=== PATIENT | male | born 1955 | race Caucasian/White ===

== ENCOUNTER 2020-11-07 01:28 | Emergency (ER) | payer MEDICARE, SELFPAY ==
[2020-11-07 01:36] VITALS: BP 166/124; PULSE 83; RESP 18; TEMP 36.5; O2SAT 100; BMI 23.5
[2020-11-07 01:44] VITALS: BP 183/107; PULSE 83; RESP 18; TEMP 36.5; O2SAT 100
--- NOTE | 2020-11-07 01:48 | W.ED.NAVMDI ---
Documented by User: EDWARDO Smiley 11/07/20 03:30 HPI - Nausea/Vomiting/Diarrhea General: Chief complaint: Nausea/Vomiting/Diarrhea Stated complaint: Vomiting Time Seen by Provider: 11/07/20 01:42 History of Present Illness: HPI Narrative: Patient is a 65-year-old male comes to the ED with nausea and vomiting. Symptoms started 3 days ago. He is had this once before and was diagnosed with cyclic vomiting syndrome. He admits to chronic marijuana use. He has vomited many times today and over the past couple days and has not been able to keep any food or fluids down. He went in to the ED at [facility] on Thursday and was diagnosed with cyclic vomiting and sent home with nausea meds. The at home nausea meds did not help. He denies any fever, chills, chest pain, shortness of breath, abdominal pain, bladder or bowel symptoms. Associated nausea: Yes Associated symtoms: Reports nausea; Denies change in vision, chest pain, dysuria, fatigue, headache(s) or palpitations Review of Systems Const: Denies: fever(s), chills or fatigue Eyes: Denies: change in vision or eye discomfort ENMT: Denies: throat pain, odynophagia, nasal discharge or nasal congestion Card: Denies: chest pain, palpitations, edema, swelling of feet/ankles, dyspnea on exertion or orthopnea Resp: Denies: dyspnea, productive cough or non-productive cough GI: Reports: nausea and vomiting; Denies: abdominal pain, diarrhea, constipation or hematochezia : Denies: flank pain, difficulty urinating, dysuria or hematuria Musc: Denies: neck pain, back pain or extremity swelling Skin/Breast: Denies: rash or new lesions Neuro: Denies: headache(s), numbness in extremities or weakness in extremities Physical Exam Const: COMMON NORMALS: no acute distress, patient oriented x3 and alert GENERAL APPEARANCE: cooperative and comfortable HENMT: COMMON NORMALS: normocephalic HEAD & SCALP: normocephalic MOUTH: moist mucous membranes abnormal Details: parched THROAT: posterior oropharynx normal and uvula midline Eye: COMMON NORMALS: Equal, round and reactive pupils present PUPIL: Yes Equal, round and reactive pupils present Neck/C-Spine: COMMON NORMALS: supple GENERAL: Yes normal visual inspection Resp: COMMON NORMALS: normal respiratory effort, No retractions, No use of accessory muscles and clear to auscultation bilaterally AUSCULTATION: clear to auscultation bilaterally Cardio: COMMON NORMALS: regular rate, regular rhythm, S1 normal heart sound present, S2 normal heart sound present, No gallops present (Cardio), No clicks present (Cardio), No murmurs present (Cardio) and Peripheral pulses 2+ throughout RATE: regular rate RHYTHM: regular rhythm HEART SOUNDS: S1 normal heart sound present and S2 normal heart sound present PERIPHERAL PULSES: Peripheral pulses 2+ throughout GI: COMMON NORMALS: Normal to inspection, nondistended, normoactive bowel sounds present, Soft to palpation, non-tender and no masses PALPATION: Yes Soft to palpation OTHER: No tenderness upon light or deep palpation of the abdomen. : COMMON NORMALS: Yes no CVA tenderness BLADDER/KIDNEY EXAM: Yes no CVA tenderness Back/Pelvis: COMMON NORMALS: no CVA tenderness Extremity: COMMON NORMALS: normal to inspection and no pedal edema Neuro: COMMON NORMALS: patient oriented x3 and moves all extremities SENSORIUM/ORIENTATION: Yes alert Skin: GENERAL SKIN EXAM: dry skin Course Vital Signs: Vital signs: Vital Signs Temperature 97.7 F 11/07/20 01:44 Pulse Rate 79 11/07/20 06:04 Respiratory Rate 19 H 11/07/20 06:04 Blood Pressure 179/99 11/07/20 06:04 Pulse Oximetry 100 11/07/20 06:04 MDM - Nausea/Vomiting/Diarrhea MDM Narrative: Medical decision making narrative: Patient is a 65-year-old male who comes to the ED with nausea and vomiting. Symptoms started approximately 4 days ago. Patient has been diagnosed with cyclic vomiting before and admits to cannabis use. Denies any other symptoms such as fever, chills, abdominal pain, chest pain, bladder or bowel symptoms. Vitals are stable. Patient appears a little dry but in no acute distress or pain. He has no abdominal tenderness upon light or deep palpation. His potassium was 3.1 but the rest of CBC, CMP, lipase and UA were unremarkable. Patient was given 2 L of IV fluids, Reglan, Zofran and Ativan and his symptoms improved. He was able to tolerate p.o. fluids and he was also given potassium chloride p.o. while here in the ED. He complained of some heartburn so he was given a GI cocktail and some Pepcid. Patient care was then transferred over to Dr. Aguilar and I told him to watch patient for another half hour and if symptoms improve he can discharge home. Patient diagnosed with cyclic vomiting syndrome and hypokalemia. Sending patient home with a written prescription for 0.5 mg Ativan #6 tablets and Zofran. He is told to follow-up with his PCP in 5 to 7 days for reevaluation and to recheck his potassium levels. Return to ED precautions given. Lab Data: Attestation: I reviewed the patient's lab results. Labs: Lab Results 11/07/20 11/07/20 11/07/20 Range/Units 01:37 01:37 02:42 WBC 6.6 (4.0-10.0) 10^3/ uL RBC 4.30 (4.1-5.3) 10^6/u L Hgb 13.7 (11.7-16.6) g/dL Hct 39.1 L (42.0-52.0) % MCV 90.9 (80-94) fl MCH 31.9 (28.0-34.0) pg MCHC 35.0 (30.0-36.0) g/dL RDW 11.9 L (12.1-15.1) % Plt Count 316 (130-400) 10^3/c mm MPV 10.1 (7.4-10.4) fL Neut % (Auto) 78.6 % Lymph % (Auto) 14.7 % Buchanan % (Auto) 5.9 % Eos % (Auto) 0.2 % Baso % (Auto) 0.3 % Neut # (Auto) 5.17 (1.8-7.7) 10^3/u L Lymph # (Auto) 1.0 (0.8-4.8) 10^3/u L Buchanan # (Auto) 0.4 (0.2-0.9) 10^3/u L Eos # (Auto) 0.0 (0.0-0.8) 10^3/u L Baso # (Auto) 0.0 (0.0-0.1) 10^3/u L Nucleated RBC % (a uto) 0 % Nucleated RBCs # 0.0 /100WBC Sodium 136 (136-145) mmol/L Potassium 3.1 L (3.5-5.1) mmol/L Chloride 95 L (98-107) mmol/L Carbon Dioxide 24 (22-29) mmol/L Anion Gap 20.1 H (5-19) BUN 9 (8-23) mg/dL Creatinine 0.7 (0.7-1.2) mg/dL GFR Calculation 113.5 (90-130) mL/min Glucose 115 (65-115) mg/dL Calculated Osmolal ity 282 L (285-295) mOsm/k g Calcium 9.8 (8.5-10.5) mg/dL Total Bilirubin 0.7 (0.15-1.2) mg/dL AST 22 (0-40) U/L ALT 18 (0-41) U/L Alkaline Phosphata se 294 H (40-130) IU/L Total Protein 7.4 (6.6-8.7) g/dL Albumin 4.7 (3.5-5.2) g/dL Globulin 2.7 (1.3-4.6) g/dL Lipase 41 (13-60) U/L Urine Color Yellow (Yellow) Urine Appearance Clear (CLEAR) Urine pH 9 H (5-7) Ur Specific Gravit y 1.010 (1.005-1.030) Urine Protein Neg (Negative) Urine Glucose (UA) Norm (Normal) Urine Ketones 2+ H (Negative) Urine Blood Neg (Negative) Urine Nitrate Negative (Negative) Urine Bilirubin Neg (Negative) Prot Sulfosalicyli c Acd Negative (Negative) Urine Urobilinogen Norm (Negative) mg/dL Ur Leukocyte Teresa ase Negative (Negative) Discharge Plan Discharge Patient Disposition: Home Clinical Impression: Cyclic vomiting syndrome, Hypokalemia, Hypertension Condition: Stable Prescriptions: New ondansetron 4 mg tablet,disintegrating 4 mg PO Q8H Qty: 20 RF: 0 Norvasc 5 mg tablet 5 mg PO DAILY Qty: 30 RF: 0 Discharge Orders: Discharge ED (Routine); Ordered 11/07/20 Ordered By: Agustin Aguilar Discharge Diet: Advance as tolerated Discharge Activity: Increase activity as tolerated Patient Instructions: Acute Nausea and Vomiting (ED), Hypertension (ED) Activity Restrictions/Additional Instructions: Follow-up with medical provider as directed in 5 to 7 days reevaluation. Have your potassium level rechecked at your PCP. take medications as prescribed. Return to the ER or your medical provider if condition worsens. Please read and understand discharge instructions. Thank you for choosing [facility] for your healthcare needs today. Please realize this is an emergency room and that we are providing you with a medical screening exam and this may not be complete and all inclusive of all the testing and or work up that you may need to determine your ailment or severity of your illness. It is very important that you follow up as instructed or that you return to the Emergency Department should you have concerns or if your condition changes or worsens in any way. Sign Out Sign Out Data: Patient Sign Out occurred on 11/07/20 at 04:47. Patient's care was discussed, and care was transferred from to Agustin Aguilar MD. Coding Level of Care Code ED [facility] [employer] [facility] Fwd Exam Comprehensive Documented by User: Agustin Aguilar MD 11/08/20 07:13 HPI - Nausea/Vomiting/Diarrhea General: Chief complaint: Nausea/Vomiting/Diarrhea Stated complaint: Vomiting Time Seen by Provider: 11/07/20 01:42 Course Vital Signs: Vital signs: Vital Signs Temperature 97.7 F 11/07/20 01:44 Pulse Rate 79 11/07/20 06:04 Respiratory Rate 19 H 11/07/20 06:04 Blood Pressure 179/99 11/07/20 06:04 Pulse Oximetry 100 11/07/20 06:04 MDM - Nausea/Vomiting/Diarrhea MDM Narrative: Medical decision making narrative: I discussed the patient case and have reviewed documentation and agree as written. Patient reevaluated with some improvement then worsening of symptoms. Topical capsaicin cream ordered with near complete resolution of pain and other symptoms. Patient is satisfactory for discharge. Agustin Aguilar MD Emergency Medicine Lab Data: Labs: Lab Results 11/07/20 11/07/20 11/07/20 Range/Units 01:37 01:37 02:42 WBC 6.6 (4.0-10.0) 10^3/ uL RBC 4.30 (4.1-5.3) 10^6/u L Hgb 13.7 (11.7-16.6) g/dL Hct 39.1 L (42.0-52.0) % MCV 90.9 (80-94) fl MCH 31.9 (28.0-34.0) pg MCHC 35.0 (30.0-36.0) g/dL RDW 11.9 L (12.1-15.1) % Plt Count 316 (130-400) 10^3/c mm MPV 10.1 (7.4-10.4) fL Neut % (Auto) 78.6 % Lymph % (Auto) 14.7 % Buchanan % (Auto) 5.9 % Eos % (Auto) 0.2 % Baso % (Auto) 0.3 % Neut # (Auto) 5.17 (1.8-7.7) 10^3/u L Lymph # (Auto) 1.0 (0.8-4.8) 10^3/u L Buchanan # (Auto) 0.4 (0.2-0.9) 10^3/u L Eos # (Auto) 0.0 (0.0-0.8) 10^3/u L Baso # (Auto) 0.0 (0.0-0.1) 10^3/u L Nucleated RBC % (a uto) 0 % Nucleated RBCs # 0.0 /100WBC Sodium 136 (136-145) mmol/L Potassium 3.1 L (3.5-5.1) mmol/L Chloride 95 L (98-107) mmol/L Carbon Dioxide 24 (22-29) mmol/L Anion Gap 20.1 H (5-19) BUN 9 (8-23) mg/dL Creatinine 0.7 (0.7-1.2) mg/dL GFR Calculation 113.5 (90-130) mL/min Glucose 115 (65-115) mg/dL Calculated Osmolal ity 282 L (285-295) mOsm/k g Calcium 9.8 (8.5-10.5) mg/dL Total Bilirubin 0.7 (0.15-1.2) mg/dL AST 22 (0-40) U/L ALT 18 (0-41) U/L Alkaline Phosphata se 294 H (40-130) IU/L Total Protein 7.4 (6.6-8.7) g/dL Albumin 4.7 (3.5-5.2) g/dL Globulin 2.7 (1.3-4.6) g/dL Lipase 41 (13-60) U/L Urine Color Yellow (Yellow) Urine Appearance Clear (CLEAR) Urine pH 9 H (5-7) Ur Specific Gravit y 1.010 (1.005-1.030) Urine Protein Neg (Negative) Urine Glucose (UA) Norm (Normal) Urine Ketones 2+ H (Negative) Urine Blood Neg (Negative) Urine Nitrate Negative (Negative) Urine Bilirubin Neg (Negative) Prot Sulfosalicyli c Acd Negative (Negative) Urine Urobilinogen Norm (Negative) mg/dL Ur Leukocyte Teresa ase Negative (Negative) Discharge Plan Discharge Patient Disposition: Home Clinical Impression: Cyclic vomiting syndrome, Hypokalemia, Hypertension Condition: Stable Prescriptions: New ondansetron 4 mg tablet,disintegrating 4 mg PO Q8H Qty: 20 RF: 0 Norvasc 5 mg tablet 5 mg PO DAILY Qty: 30 RF: 0 Discharge Orders: Discharge ED (Routine); Ordered 11/07/20 Ordered By: Agustin Aguilar Discharge Diet: Advance as tolerated Discharge Activity: Increase activity as tolerated Patient Instructions: Acute Nausea and Vomiting (ED), Hypertension (ED) Activity Restrictions/Additional Instructions: Follow-up with medical provider as directed in 5 to 7 days reevaluation. Have your potassium level rechecked at your PCP. take medications as prescribed. Return to the ER or your medical provider if condition worsens. Please read and understand discharge instructions. Thank you for choosing [facility] for your healthcare needs today. Please realize this is an emergency room and that we are providing you with a medical screening exam and this may not be complete and all inclusive of all the testing and or work up that you may need to determine your ailment or severity of your illness. It is very important that you follow up as instructed or that you return to the Emergency Department should you have concerns or if your condition changes or worsens in any way. Sign Out Sign Out Data: Patient Sign Out occurred on 11/07/20 at 04:47. Patient's care was discussed, and care was transferred from to Agustin Aguilar MD. Coding Level of Care Code ED [facility] [facility] [employer] [facility] Fwd Exam Comprehensive
[2020-11-07 01:56] LABS: Basophils % 0.3 %; Eosinophils % 0.2 %; Hematocrit 39.1 % (42.0-52.0); Hemoglobin 13.7 g/dL (11.7-16.6); Lymphocytes % 14.7 %; Mean Corpuscular Hemoglobin 31.9 pg (28.0-34.0); Mean Corpuscular Volume 90.9 fl (80-94); Mean Platelet Volume 10.1 fL (7.4-10.4); Monocytes # 0.4 10^3/uL (0.2-0.9); Monocytes % 5.9 %; Neutrophils # 5.17 10^3/uL (1.8-7.7); Neutrophils % 78.6 %; Nucleated Red Blood Cells % 0 %; Platelet Count 316 10^3/cmm (130-400); Red Cell Distribution Width 11.9 % (12.1-15.1); White Blood Count 6.6 10^3/uL (4.0-10.0)
[2020-11-07] MEDS: metoclopramide 5 mg/mL SDV 2 mL 10 MG IVP (01:56)
[2020-11-07] MEDS: LORazepam 2 mg/mL INJ 1 mL 1 MG IVP (01:56)
[2020-11-07] MEDS: sodium chloride 0.9% 1,000 ML 999 ML IV ×2 (01:56→02:46)
[2020-11-07 02:10] LABS: Alanine Aminotransferase 18 U/L (0-41); Albumin Level 4.7 g/dL (3.5-5.2); Alkaline Phosphatase 294 IU/L (40-130); Anion Gap 20.1 (5-19); Aspartate Amino Transferase 22 U/L (0-40); Blood Urea Nitrogen 9 mg/dL (8-23); Calcium 9.8 mg/dL (8.5-10.5); Carbon Dioxide 24 mmol/L (22-29); Chloride 95 mmol/L (98-107); Globulin 2.7 g/dL (1.3-4.6); Glomerular Filtration Rate 113.5 mL/min (90-130); Glucose 115 mg/dL (65-115); Lipase 41 U/L (13-60); Osmolality Calculated 282 mOsm/kg (285-295); Potassium 3.1 mmol/L (3.5-5.1); Sodium 136 mmol/L (136-145); Total Bilirubin 0.7 mg/dL (0.15-1.2); Total Protein 7.4 g/dL (6.6-8.7)
[2020-11-07] MEDS: potassium chloride ER 20 mEq Tablet PO (02:46)
[2020-11-07 02:49] VITALS: BP 191/113; PULSE 76; RESP 16; O2SAT 99
[2020-11-07 02:55] LABS: Add Urine Microscopic? NO; Charge for UA Resulting for Rev
[2020-11-07 03:03] LABS: Bilirubin Urine Neg (Negative); Blood Urine Neg (Negative); Glucose Urine UA Norm (Normal); Ketones Urine 2+ (Negative); Nitrate Urine Negative (Negative); Protein Urine Neg (Negative); Sulfosalicylic Acid Urine Negative (Negative); Urine Appearance Clear (CLEAR); Urine Color Yellow (Yellow); Urobilinogen Urine Norm (Negative); pH Urine 9 (5-7)
[2020-11-07 03:04] LABS: Leukocyte Esterase Urine Negative (Negative)
[2020-11-07] MEDS: ondansetron 2 mg/ML SDV 2 mL 4 MG IVP (04:15)
[2020-11-07] MEDS: famotidine 20 mg/2 mL INJ 40 MG IVP (04:19)
[2020-11-07] MEDS: lidocaine 2% viscous 15 ML, aluminum-mag hydrox-simethicon 30 ML, sucralfate oral liq 1 GM PO (04:21)
[2020-11-07] MEDS: capsaicin 0.025% cream 60 gm 1 APPLIC TOPICAL (05:22)
[2020-11-07] MEDS: amlodipine 5 mg Tablet PO (05:53)
[2020-11-07 06:04] VITALS: BP 179/99; PULSE 79; RESP 19; O2SAT 100
== END 2020-11-07 06:11 | disposition home or self-care (01) ==
PROVIDERS: Physician Assistant; Emergency Provider Emergency Medicine
DX: R11.15 Cyclical vomiting syndrome unrelated to migraine (principal); E87.6 Hypokalemia; I10 Essential (primary) hypertension
CPT/HCPCS: 80053; 81003; 83690; 85025; 96361; 96374; 96375; 99284; J2060; J2405; J2765; J3490; J7030